=== PATIENT | female | born 1960 | race African-American/Black ===

== ENCOUNTER 2016-11-26 18:23 | Emergency (ER) | payer MEDICARE, OTHER | END 2016-11-26 19:47 | disposition left against medical advice (07) | LOC: ERS 18:23 | DX: Z53.21 Procedure and treatment not carried out due to patient leaving prior to being seen by health care provider (principal) ==

== ENCOUNTER 2017-11-15 12:56 | Outpatient (CLI) | payer MEDICARE, MEDICAID | END 2017-11-15 12:57 | disposition home or self-care (01) | LOC: MWLC DTY 12:56 | PROVIDERS: ATTEND Family Medicine | DX: I69.359 Hemiplegia and hemiparesis following cerebral infarction affecting unspecified side (principal); E11.40 Type 2 diabetes mellitus with diabetic neuropathy, unspecified; E11.69 Type 2 diabetes mellitus with other specified complication; E78.2 Mixed hyperlipidemia; I10 Essential (primary) hypertension; E66.01 Morbid (severe) obesity due to excess calories | CPT/HCPCS: 97802 ==

== ENCOUNTER 2018-11-27 14:05 | Outpatient (CLI) | payer MEDICARE, MEDICAID ==
--- NOTE | 2018-11-27 15:01 | MMO ---
Bilateral MAMMO Bilat Screen [facility]. CLINICAL HISTORY: Patient is 58 years old and is seen for screening. The patient has no family history of breast cancer. The patient has no personal history of cancer. VIEWS: The views performed were: bilateral craniocaudal with tomosynthesis and bilateral mediolateral oblique with tomosynthesis. FILMS COMPARED: The present examination has been compared to prior imaging studies performed at [facility] on 03/19/2008, 03/19/2015 and 12/27/2016. This study has been interpreted with the assistance of computer-aided detection. MAMMOGRAM FINDINGS: The breasts are almost entirely fat. There are stable benign appearing calcifications seen in both breasts. There are no suspicious masses, suspicious calcifications, or new areas of architectural distortion. IMPRESSION: THERE IS NO MAMMOGRAPHIC EVIDENCE OF MALIGNANCY. A ROUTINE FOLLOW-UP MAMMOGRAM IN 1 YEAR IS RECOMMENDED. THE RESULTS OF THIS EXAM WERE SENT TO THE PATIENT. ACR BI-RADS Category 2 - Benign finding MAMMOGRAPHY NOTE: 1. A negative mammogram report should not delay a biopsy if a dominant of clinically suspicious mass is present. 2. Approximately 10% to 15% of breast cancers are not detected by mammography. 3. Adenosis and dense breasts may obscure an underlying neoplasm. Reported by: MARK BO MD Electonically Signed: [id number]
== END 2018-11-27 14:06 | disposition home or self-care (01) ==
LOC: BICMAMMO 14:05
PROVIDERS: ATTEND Family Medicine
DX: Z12.31 Encounter for screening mammogram for malignant neoplasm of breast (principal)
CPT/HCPCS: 77063; 77067

== ENCOUNTER 2021-04-18 00:19 | Day surgery (SDC) | payer MEDICAID, MEDICARE ==
[2021-04-18 01:26] LABS: #Basophils 0.1 thou/uL (0.0-0.2); #Lymphocytes 2.1 thou/uL (1.20-3.40); #Monocytes 0.5 thou/uL (0.11-0.59); #Neutrophils 5.5 thou/uL (1.40-6.50); %Basophils 0.8 % (0.0-1.0); %Eosinophils 0.6 % (0.0-10.0); %Lymphocytes 25.4 % (21.0-51.0); %Monocytes 6.3 % (0.0-10.0); %Neutrophils 66.9 % (42.0-75.0); Hemoglobin 12.9 g/dL (12.0-16.0); Mean Corpuscular HGB CONC 34.3 g/dL (32.0-36.0); Mean Corpuscular Hemoglobin 32.4 pg (27.0-31.0); Mean Corpuscular Volume 94.5 fL (78.0-98.0); Mean Platelet Volume 8.4 fL (7.4-10.4); Platelet Count 185 thou/uL (130-400); RBC Distribution Width 13.2 % (11.5-14.5); Red Blood Cell (RBC) Count 3.99 mill/uL (4.20-5.40); White Blood Cell (WBC) Count 8.2 thou/uL (4.8-10.8)
[2021-04-18 02:48] LABS: ALT (SGPT) 29 U/L (8-55); AST (SGOT) 25 U/L (5-34); Albumin 3.9 g/dL (3.5-5.0); Alkaline Phosphatase 112 U/L (40-110); Anion Gap 13 mmol/L (10-20); BUN (Urea Nitrogen) 13 mg/dL (9.8-20.1); Bilirubin, Total 0.5 mg/dL (0.2-1.2); Calc. Creatinine Clearance 0 mL/min (70-130); Calcium 9.2 mg/dL (7.8-10.44); Carbon Dioxide 22 mmol/L (22-29); Chloride 105 mmol/L (98-107); Globulin 3.1 g/dL (2.4-3.5); Glucose 185 mg/dL (70-105); Potassium 3.8 mmol/L (3.5-5.1); Sodium 136 mmol/L (136-145)
[2021-04-18] MEDS ORDERED: Ondansetron PF 4 MG/2 ML Vial ONE ×3 (03:05→08:17)
[2021-04-18] MEDS ORDERED: Acetaminophen 500 MG TAB ONE (03:05)
[2021-04-18] MEDS ORDERED: Mag-Al 1200 mg/1200 mg/30 ML UDCUP ONE (03:06)
[2021-04-18 03:58] LABS: Bilirubin Negative (Negative); Blood, Urine Negative (Negative); Clarity Clear (Clear); Glucose, Urine (Dipstick) Normal (Negative); Ketone, Urine 10 mg/dL (Negative); Leukocyte Negative Leu/uL (Negative); Nitrite Negative (Negative); Protein, Urine (Dipstick) Negative (Neg-Trace); Specific Gravity, Urine 1.011 (1.002-1.036); Urobilinogen Normal mg/dL (Less than 2)
[2021-04-18] MEDS ORDERED: Lorazepam 1 MG TAB ONE (05:37)
[2021-04-18] MEDS ORDERED: Enoxaparin Sodium 100 MG/ML SYRINGE ONE (06:02)
[2021-04-18] MEDS ORDERED: Fentanyl 100 MCG/2 ML VIAL ONE ×3 (06:08→08:57)
[2021-04-18] MEDS ORDERED: Heparin 10,000 UNITS/ 10 ML VIAL ONE (07:43)
[2021-04-18] MEDS ORDERED: Midazolam HCl 2 mg/2 ml Vial ONE ×2 (08:17→08:57)
[2021-04-18] MEDS ORDERED: Lidocaine 1% (PF) 30 ML VIAL ONE (09:00)
[2021-04-18] MEDS ORDERED: Iopamidol 370 76% 100 ML VIAL ONE (10:42)
[2021-04-18] MEDS ORDERED: Fentanyl 250 MCG/5 ML VIAL ONE ×2 (11:09→12:03)
== END 2021-04-18 16:20 | disposition home or self-care (01) ==
LOC: ERS 00:19 → CCL 08:10
PROVIDERS: ATTEND Thoracic Surgery (Cardiothoracic Vascular Surgery)
PROC: 047C3DZ Dilation of Right Common Iliac Artery with Intraluminal Device, Percutaneous Approach (ICD-10-PCS; principal; 2021-04-18)
DX: E11.51 Type 2 diabetes mellitus with diabetic peripheral angiopathy without gangrene (principal); I70.203 Unspecified atherosclerosis of native arteries of extremities, bilateral legs; I69.151 Hemiplegia and hemiparesis following nontraumatic intracerebral hemorrhage affecting right dominant side; J44.9 Chronic obstructive pulmonary disease, unspecified; E78.5 Hyperlipidemia, unspecified; I10 Essential (primary) hypertension; I25.2 Old myocardial infarction; I25.10 Atherosclerotic heart disease of native coronary artery without angina pectoris; F17.210 Nicotine dependence, cigarettes, uncomplicated; E66.9 Obesity, unspecified; Z79.02 Long term (current) use of antithrombotics/antiplatelets; Z79.4 Long term (current) use of insulin; Z79.82 Long term (current) use of aspirin; Z79.899 Other long term (current) drug therapy; Z88.0 Allergy status to penicillin; Z88.5 Allergy status to narcotic agent; Z88.8 Allergy status to other drugs, medicaments and biological substances
CPT/HCPCS: 36415; 36416; 37221; 71045; 75710; 75736; 80053; 81003; 84484; 85025; 85347; 93005; 96372; 96374; 96375; 96376; 99152; 99153; C1876; J1644; J1650; J2001; J2250; J2405; J3010; Q9967

== ENCOUNTER 2022-01-14 15:18 | Outpatient (CLI) | payer MEDICARE, MEDICAID | END 2022-01-14 15:19 | disposition home or self-care (01) | LOC: BICRAD 15:18 | PROVIDERS: ATTEND Physician Assistant Medical | DX: R15.9 Full incontinence of feces (principal); R19.5 Other fecal abnormalities | CPT/HCPCS: 74019 ==

== ENCOUNTER 2022-10-13 14:21 | Outpatient (CLI) | payer MEDICARE, MEDICAID | END 2022-10-13 14:22 | disposition home or self-care (01) | LOC: RAD 14:21 | PROVIDERS: ATTEND Family Medicine | DX: S99.922A Unspecified injury of left foot, initial encounter (principal); S99.912A Unspecified injury of left ankle, initial encounter ==

== ENCOUNTER 2022-12-18 08:38 | Emergency (ER) | payer MEDICARE, MEDICAID ==
[2022-12-18] MEDS ORDERED: Acetaminophen 500 MG TAB ONE (09:00)
[2022-12-18 09:29] LABS: #Monocytes 0.4 thou/uL (0.11-0.59); #Neutrophils 2.6 thou/uL (1.40-6.50); %Basophils 0.3 % (0.0-1.0); %Eosinophils 0.7 % (0.0-10.0); %Lymphocytes 48.8 % (21.0-51.0); %Monocytes 6.8 % (0.0-10.0); %Neutrophils 43.2 % (42.0-75.0); Hematocrit 37.9 % (36.0-47.0); Hemoglobin 12.4 g/dL (12.0-16.0); Mean Corpuscular HGB CONC 32.7 g/dL (32.0-36.0); Mean Corpuscular Hemoglobin 29.3 pg (27.0-31.0); Mean Corpuscular Volume 89.6 fl (78.0-98.0); Mean Platelet Volume 11.2 fL (7.4-10.4); Platelet Count 182 10x3/uL (130-400); RBC Distribution Width 14.5 % (11.5-14.5); Red Blood Cell (RBC) Count 4.23 mill/uL (4.20-5.40); White Blood Cell (WBC) Count 5.9 10x3/uL (4.8-10.8)
[2022-12-18 09:55] LABS: ALT (SGPT) 16 U/L (8-55); AST (SGOT) 13 U/L (5-34); Albumin 4.3 g/dL (3.4-4.8); Alkaline Phosphatase 124 U/L (40-110); Anion Gap 10 mmol/L (10-20); BUN (Urea Nitrogen) 18 mg/dL (9.8-20.1); Bilirubin, Total 0.2 mg/dL (0.2-1.2); Calc. Creatinine Clearance 0 mL/min (70-130); Calcium 9.7 mg/dL (7.8-10.44); Carbon Dioxide 25 mmol/L (23-31); Chloride 109 mmol/L (98-107); Estimated GFR 47; Globulin 3.2 g/dL (2.4-3.5); Glucose 198 mg/dL (80-115); Potassium 3.3 mmol/L (3.5-5.1); Protein, Total 7.5 g/dL (5.8-8.1); Sodium 141 mmol/L (136-145)
[2022-12-18 09:59] LABS: Troponin I Less than 0.010 ng/mL (< 0.028)
== END 2022-12-18 10:52 | disposition home or self-care (01) ==
LOC: ERS 08:38
DX: R42 Dizziness and giddiness (principal); F17.210 Nicotine dependence, cigarettes, uncomplicated; E11.9 Type 2 diabetes mellitus without complications; I10 Essential (primary) hypertension; R51.9 Headache, unspecified; E78.5 Hyperlipidemia, unspecified; J44.9 Chronic obstructive pulmonary disease, unspecified; Z79.01 Long term (current) use of anticoagulants; Z79.899 Other long term (current) drug therapy; Z79.4 Long term (current) use of insulin
CPT/HCPCS: 70450; 80053; 84484; 85025; 93005

== ENCOUNTER 2024-11-24 07:19 | Inpatient (IN) | payer MEDICARE, MEDICAID ==
[2024-11-24 08:20] LABS: #Basophils Less than 0.03 10x3/uL (0.0-0.2); #Eosinophils Less than 0.03 10x3/uL (0.0-0.7); #Monocytes 0.26 10x3/uL (0.11-0.59); #Neutrophils 5.54 10x3/uL (1.40-6.50); %Basophils 0.1 % (0.0-1.0); %Eosinophils 0.1 % (0.0-10.0); %Lymphocytes 20.0 % (21.0-51.0); %Monocytes 3.6 % (0.0-10.0); %Neutrophils 75.9 % (42.0-75.0); Hematocrit 36.1 % (36.0-47.0); Hemoglobin 11.6 g/dL (12.0-16.0); Mean Corpuscular Hemoglobin 28.3 pg (27.0-31.0); Mean Corpuscular Volume 88.0 fL (78.0-98.0); Platelet Count 216 10x3/uL (130-400); Red Blood Cell (RBC) Count 4.10 mill/uL (4.20-5.40); White Blood Cell (WBC) Count 7.30 10x3/uL (4.8-10.8)
[2024-11-24 08:34] LABS: ALT (SGPT) 18 U/L (Less than 34); AST (SGOT) 24 U/L (11-34); Albumin 3.9 g/dL (3.1-4.5); Alkaline Phosphatase 163 U/L (40-110); Anion Gap 17 mmol/L (10-20); BUN (Urea Nitrogen) 15 mg/dL (9.8-20.1); Bilirubin, Total 0.4 mg/dL (0.3-1.2); Calc. Creatinine Clearance 0 mL/min (70-130); Calcium 9.6 mg/dL (7.8-10.44); Carbon Dioxide 20 mmol/L (23-31); Chloride 109 mmol/L (98-107); Globulin 3.8 g/dL (2.4-3.5); Glucose 263 mg/dL (80-115); Lipase 16 U/L (8-78); Potassium 3.6 mmol/L (3.5-5.1); Sodium 142 mmol/L (136-145)
[2024-11-24] MEDS ORDERED: diphenhydrAMINE 50 MG/ML VIAL ONE ×2 (08:56→09:55)
[2024-11-24] MEDS ORDERED: Iopamidol-370 76% 500 ML MDV (1 ML CHARGE) ONE (09:20)
[2024-11-24] MEDS ORDERED: hydrALAZINE 20 MG/ML VIAL ONE ×2 (10:55→13:52)
[2024-11-24] MEDS ORDERED: Lidocaine Viscous Sol 2% 15 ml UD Cup ONE (11:03)
[2024-11-24] MEDS ORDERED: Mag-Al 1200 mg/1200 mg/30 ML UDCUP ONE (11:03)
[2024-11-24 11:07] LABS: CAUTI Indications for Culture Dysuria,urgency,freq; Glucose, Urine (Dipstick) 200 mg/dL (Negative); Leukocyte Negative Leu/uL (Negative); Protein, Urine (Dipstick) 300 mg/dL (Neg-Trace); Specific Gravity, Urine 1.032 (1.002-1.036); Yeast-Budding Rare HPF (None Seen)
[2024-11-24 11:09] LABS: Bacteria/HPF 1+ HPF (None Seen); Urine Culture Reflex No No
[2024-11-24] MEDS ORDERED: Nitroglycerin 2% Ointment 1 INCH/1 GM Packet ONE (12:29)
[2024-11-24] MEDS ORDERED: Melatonin 3 MG TAB PO PRN (13:53)
[2024-11-24] MEDS ORDERED: Senokot S 8.6-50 MG TAB PO PRN (13:53)
[2024-11-24] MEDS ORDERED: Ondansetron PF 4 MG/2 ML Vial IVP PRN (13:53)
[2024-11-24] MEDS ORDERED: cloNIDine 0.1 MG TAB PO PRN (13:56)
[2024-11-24] MEDS ORDERED: Electrolyte Replacement Protocol 1 EACH FS SCH (14:00)
[2024-11-24] MEDS ORDERED: Dextrose 50% Abboject 50 ML SYRINGE SLOW IVP PRN (14:23)
[2024-11-24] MEDS ORDERED: Glucagon 1 MG/ML KIT IM PRN (14:23)
[2024-11-24] MEDS ORDERED: cloNIDine 0.1 MG TAB ONE (14:25)
[2024-11-24] MEDS ORDERED: Colchicine 0.6 MG TAB PO PRN (14:54)
[2024-11-24] MEDS: Acetaminophen 325 MG TAB PO SCH (15:58)
[2024-11-24] MEDS: Gabapentin 300 MG CAP PO SCH ×2 (16:00→21:53)
[2024-11-24] MEDS ORDERED: Mometasone 200 MCG/Formoterol 5 MCG 120 PUFF INHALER INH PRN (16:02)
[2024-11-24] MEDS: Furosemide 40 MG (4 mL) VIAL SLOW IVP SCH ×2 (16:02→21:21)
[2024-11-24] MEDS: QUEtiapine 100 MG TAB PO SCH (16:06)
[2024-11-24] MEDS: Cyclobenzaprine 10 MG TAB PO PRN (16:52)
[2024-11-24 17:39] VITALS: BMI 45.8
[2024-11-24 19:14] LABS: Anion Gap 17 mmol/L (10-20); Calcium 8.9 mg/dL (7.8-10.44); Carbon Dioxide 16 mmol/L (23-31); Chloride 113 mmol/L (98-107); Potassium 4.1 mmol/L (3.5-5.1); Sodium 142 mmol/L (136-145)
[2024-11-24 19:26] LABS: BUN (Urea Nitrogen) 17 mg/dL (9.8-20.1); Calc. Creatinine Clearance 75 mL/min (70-130); Glucose 214 mg/dL (80-115); Magnesium 2.4 mg/dL (1.6-2.6)
[2024-11-24] MEDS: Carvedilol 6.25 MG TAB PO SCH (21:53)
[2024-11-24] MEDS: Rosuvastatin 20 MG TAB PO SCH (21:53)
[2024-11-24] MEDS: Apixaban 5 MG TAB PO SCH (22:13)
[2024-11-25 05:20] LABS: #Basophils Less than 0.03 10x3/uL (0.0-0.2); #Eosinophils Less than 0.03 10x3/uL (0.0-0.7); #Monocytes 0.68 10x3/uL (0.11-0.59); #Neutrophils 4.75 10x3/uL (1.40-6.50); %Basophils 0.3 % (0.0-1.0); %Eosinophils 0.1 % (0.0-10.0); %Lymphocytes 25.3 % (21.0-51.0); %Monocytes 9.3 % (0.0-10.0); %Neutrophils 64.9 % (42.0-75.0); Hematocrit 35.5 % (36.0-47.0); Hemoglobin 11.2 g/dL (12.0-16.0); Mean Corpuscular Hemoglobin 28.6 pg (27.0-31.0); Mean Corpuscular Volume 90.8 fL (78.0-98.0); Platelet Count 216 10x3/uL (130-400); Red Blood Cell (RBC) Count 3.91 mill/uL (4.20-5.40); White Blood Cell (WBC) Count 7.32 10x3/uL (4.8-10.8)
[2024-11-25 05:52] LABS: ALT (SGPT) 16 U/L (Less than 34); AST (SGOT) 21 U/L (11-34); Albumin 3.7 g/dL (3.1-4.5); Alkaline Phosphatase 140 U/L (40-110); Anion Gap 15 mmol/L (10-20); BUN (Urea Nitrogen) 22 mg/dL (9.8-20.1); Bilirubin, Total 0.3 mg/dL (0.3-1.2); Calc. Creatinine Clearance 55 mL/min (70-130); Calcium 9.1 mg/dL (7.8-10.44); Carbon Dioxide 20 mmol/L (23-31); Chloride 111 mmol/L (98-107); Globulin 3.3 g/dL (2.4-3.5); Glucose 154 mg/dL (80-115); Magnesium 2.5 mg/dL (1.6-2.6); Potassium 3.6 mmol/L (3.5-5.1); Sodium 142 mmol/L (136-145)
[2024-11-25] MEDS ORDERED: HumaLOG 300 UNITS/3 ML VIAL SC PRN (08:32)
[2024-11-25] MEDS ORDERED: QUEtiapine 25 MG TAB PO SCH (09:00)
[2024-11-25] MEDS: Aspirin 81 mg Enteric Coated Tablet PO SCH (09:44)
[2024-11-25] MEDS: Pantoprazole 40 MG DR.TAB PO SCH (09:49)
[2024-11-25] MEDS: QUEtiapine 25 MG TAB PO SCH (09:51)
[2024-11-25] MEDS ORDERED: Prochlorperazine 10 MG/2 ML VIAL SLOW IVP PRN (10:47)
[2024-11-26 07:23] LABS: Hematocrit 34.6 % (36.0-47.0); Hemoglobin 10.7 g/dL (12.0-16.0); Mean Corpuscular Hemoglobin 28.7 pg (27.0-31.0); Mean Corpuscular Volume 92.8 fL (78.0-98.0); Platelet Count 190 10x3/uL (130-400); Red Blood Cell (RBC) Count 3.73 mill/uL (4.20-5.40); White Blood Cell (WBC) Count 6.68 10x3/uL (4.8-10.8)
[2024-11-26 07:44] LABS: Anion Gap 11 mmol/L (10-20); BUN (Urea Nitrogen) 32 mg/dL (9.8-20.1); Calc. Creatinine Clearance 46 mL/min (70-130); Calcium 8.7 mg/dL (7.8-10.44); Carbon Dioxide 25 mmol/L (23-31); Chloride 107 mmol/L (98-107); Glucose 119 mg/dL (80-115); Potassium 3.4 mmol/L (3.5-5.1); Sodium 140 mmol/L (136-145)
[2024-11-26 14:22] VITALS: BP 109/59; TEMP 98.1
== END 2024-11-26 17:07 | disposition home or self-care (01) | DRG 391 ==
LOC: ERS 07:19 → OBS 13:43 → OBSVTOIN 11-25 11:11
PROVIDERS: ADMIT Internal Medicine; ATTEND Internal Medicine
DX: R10.9 Unspecified abdominal pain (principal); I21.A1 Myocardial infarction type 2; J44.1 Chronic obstructive pulmonary disease with (acute) exacerbation; Z68.42 Body mass index [BMI] 45.0-49.9, adult; N17.9 Acute kidney failure, unspecified; I50.32 Chronic diastolic (congestive) heart failure; R11.2 Nausea with vomiting, unspecified; I48.91 Unspecified atrial fibrillation; E11.9 Type 2 diabetes mellitus without complications; F41.9 Anxiety disorder, unspecified; J44.9 Chronic obstructive pulmonary disease, unspecified; E78.5 Hyperlipidemia, unspecified; E66.9 Obesity, unspecified; N18.9 Chronic kidney disease, unspecified; I25.2 Old myocardial infarction; Z88.5 Allergy status to narcotic agent; Z88.0 Allergy status to penicillin; Z88.8 Allergy status to other drugs, medicaments and biological substances; Z79.899 Other long term (current) drug therapy; Z86.73 Personal history of transient ischemic attack (TIA), and cerebral infarction without residual deficits; G47.33 Obstructive sleep apnea (adult) (pediatric); Z98.890 Other specified postprocedural states; I16.0 Hypertensive urgency; N18.30 Chronic kidney disease, stage 3 unspecified; K59.00 Constipation, unspecified; F17.200 Nicotine dependence, unspecified, uncomplicated
CPT/HCPCS: 36415; 36416; 71045; 74177; 80048; 80053; 81001; 83036; 83605; 83690; 83735; 83880; 84443; 84484; 85025; 85027; 87040; 87086; 93005; 93306; 96361; 96374; 96375; 96376; G0378; J0360; J1200; J1815; J1940; J2060; J2550; Q0162; Q9967

== ENCOUNTER 2025-01-07 10:09 | Inpatient (IN) | payer MEDICARE, MEDICAID ==
[2025-01-07] MEDS ORDERED: Aspirin Chewable 81 MG TAB ONE (11:09)
[2025-01-07] MEDS ORDERED: Nitroglycerin 0.4 MG TAB 1 EACH ONE ×2 (11:11→12:57)
[2025-01-07 11:33] LABS: #Basophils Less than 0.03 10x3/uL (0.0-0.2); #Eosinophils 0.03 10x3/uL (0.0-0.7); #Monocytes 0.36 10x3/uL (0.11-0.59); #Neutrophils 4.53 10x3/uL (1.40-6.50); %Basophils 0.1 % (0.0-1.0); %Eosinophils 0.4 % (0.0-10.0); %Lymphocytes 27.3 % (21.0-51.0); %Monocytes 5.3 % (0.0-10.0); %Neutrophils 66.6 % (42.0-75.0); Hematocrit 36.5 % (36.0-47.0); Hemoglobin 12.1 g/dL (12.0-16.0); Mean Corpuscular Hemoglobin 28.9 pg (27.0-31.0); Mean Corpuscular Volume 87.1 fL (78.0-98.0); Platelet Count 170 10x3/uL (130-400); Red Blood Cell (RBC) Count 4.19 mill/uL (4.20-5.40); White Blood Cell (WBC) Count 6.81 10x3/uL (4.8-10.8)
[2025-01-07 11:56] LABS: ALT (SGPT) 14 U/L (Less than 34); AST (SGOT) 19 U/L (11-34); Albumin 3.6 g/dL (3.1-4.5); Alkaline Phosphatase 139 U/L (40-110); Anion Gap 13 mmol/L (10-20); BUN (Urea Nitrogen) 14 mg/dL (9.8-20.1); Bilirubin, Total 0.3 mg/dL (0.3-1.2); Calc. Creatinine Clearance 0 mL/min (70-130); Calcium 10.0 mg/dL (7.8-10.44); Carbon Dioxide 20 mmol/L (23-31); Chloride 113 mmol/L (98-107); Globulin 3.5 g/dL (2.4-3.5); Glucose 220 mg/dL (80-115); Potassium 3.6 mmol/L (3.5-5.1); Sodium 142 mmol/L (136-145)
[2025-01-07] MEDS ORDERED: Nitroglycerin 0.4 MG TAB (25 Tab Bottle) SL PRN (15:30)
[2025-01-07] MEDS ORDERED: Bisacodyl 10 MG SUPP PR PRN (15:31)
[2025-01-07] MEDS ORDERED: Acetaminophen 325 MG TAB PO PRN (15:31)
[2025-01-07] MEDS ORDERED: Calcium Carbonate 500 MG ChewTAB PO PRN (15:31)
[2025-01-07] MEDS ORDERED: Ondansetron PF 4 MG/2 ML Vial IVP PRN (15:31)
[2025-01-07] MEDS ORDERED: Senokot S 8.6-50 MG TAB PO PRN (15:31)
[2025-01-07] MEDS ORDERED: Dextrose 50% Abboject 50 ML SYRINGE SLOW IVP PRN (16:47)
[2025-01-07] MEDS ORDERED: Glucagon 1 MG/ML KIT IM PRN (16:47)
[2025-01-07 18:28] VITALS: BMI 45.8
[2025-01-07] MEDS: Lidocaine 2% Viscous Solution 10 ML, Aluminum & Magnesium Hydroxide 30 ML SSW SCH (19:18)
[2025-01-07] MEDS: Carvedilol 6.25 MG TAB PO SCH (19:18)
[2025-01-07] MEDS: Diclofenac 1% 50 GM TOPICAL GEL TP SCH (21:02)
[2025-01-07] MEDS: Apixaban 5 MG TAB PO SCH (21:04)
[2025-01-07] MEDS: Rosuvastatin 20 MG TAB PO SCH (21:04)
[2025-01-07] MEDS: Gabapentin 300 MG CAP PO SCH (21:04)
[2025-01-08] MEDS: Valsartan 80 MG TAB PO SCH ×2 (01:20→16:14)
[2025-01-08 04:22] LABS: #Basophils Less than 0.03 10x3/uL (0.0-0.2); #Eosinophils 0.03 10x3/uL (0.0-0.7); #Monocytes 0.37 10x3/uL (0.11-0.59); #Neutrophils 2.12 10x3/uL (1.40-6.50); %Basophils 0.2 % (0.0-1.0); %Eosinophils 0.6 % (0.0-10.0); %Lymphocytes 52.1 % (21.0-51.0); %Monocytes 7.0 % (0.0-10.0); %Neutrophils 40.1 % (42.0-75.0); Hematocrit 35.7 % (36.0-47.0); Hemoglobin 11.2 g/dL (12.0-16.0); Mean Corpuscular Hemoglobin 28.3 pg (27.0-31.0); Mean Corpuscular Volume 90.2 fL (78.0-98.0); Platelet Count 155 10x3/uL (130-400); Red Blood Cell (RBC) Count 3.96 mill/uL (4.20-5.40); White Blood Cell (WBC) Count 5.28 10x3/uL (4.8-10.8)
[2025-01-08 04:31] LABS: Anion Gap 13 mmol/L (10-20); BUN (Urea Nitrogen) 16 mg/dL (9.8-20.1); Calc. Creatinine Clearance 92 mL/min (70-130); Calcium 8.9 mg/dL (7.8-10.44); Carbon Dioxide 22 mmol/L (23-31); Cardiac Risk 4.3 (Less than 4.5); Chloride 112 mmol/L (98-107); Cholesterol 112 mg/dl (< 200 Desired); Glucose 142 mg/dL (80-115); HDL Cholesterol 26 mg/dL (>60 Neg Risk); LDL Cholesterol, Calculated 57 mg/dL; Potassium 3.0 mmol/L (3.5-5.1); Sodium 144 mmol/L (136-145); Triglycerides 146 mg/dL (Less than 150)
[2025-01-08] MEDS: hydrALAZINE 20 MG/ML VIAL SLOW IVP SCH (05:14)
[2025-01-08] MEDS ORDERED: Gabapentin 300 MG CAP PO PRN (08:07)
[2025-01-08] MEDS: QUEtiapine 100 MG TAB PO SCH (08:42)
[2025-01-08] MEDS: Furosemide 40 MG TAB PO SCH (08:42)
[2025-01-08] MEDS: Pantoprazole 40 MG DR.TAB PO SCH (08:43)
[2025-01-08] MEDS ORDERED: Aspirin Chewable 81 MG TAB PO SCH (09:00)
[2025-01-08] MEDS ORDERED: Valsartan 80 MG TAB PO SCH (09:00)
[2025-01-08] MEDS: Carvedilol 6.25 MG TAB PO SCH (16:16)
[2025-01-08] MEDS: Rosuvastatin 20 MG TAB PO SCH (20:21)
[2025-01-08] MEDS: Melatonin 3 MG TAB PO PRN (22:48)
[2025-01-09 04:20] LABS: Anion Gap 14 mmol/L (10-20); BUN (Urea Nitrogen) 18 mg/dL (9.8-20.1); Calc. Creatinine Clearance 97 mL/min (70-130); Calcium 9.4 mg/dL (7.8-10.44); Carbon Dioxide 20 mmol/L (23-31); Chloride 114 mmol/L (98-107); Glucose 152 mg/dL (80-115); Potassium 3.5 mmol/L (3.5-5.1); Sodium 144 mmol/L (136-145)
[2025-01-09 11:31] VITALS: BP 167/77; TEMP 98.2
== END 2025-01-09 16:30 | disposition home or self-care (01) | DRG 313 ==
LOC: ERS 10:09 → 2NO 15:20 → OBSVTOIN 01-08 14:11
PROVIDERS: ADMIT Family Medicine; ATTEND Family Medicine
DX: R07.9 Chest pain, unspecified (principal); I69.951 Hemiplegia and hemiparesis following unspecified cerebrovascular disease affecting right dominant side; Z68.42 Body mass index [BMI] 45.0-49.9, adult; G43.909 Migraine, unspecified, not intractable, without status migrainosus; J44.9 Chronic obstructive pulmonary disease, unspecified; E78.5 Hyperlipidemia, unspecified; I25.10 Atherosclerotic heart disease of native coronary artery without angina pectoris; F41.9 Anxiety disorder, unspecified; F31.9 Bipolar disorder, unspecified; I48.91 Unspecified atrial fibrillation; N18.31 Chronic kidney disease, stage 3a; G47.33 Obstructive sleep apnea (adult) (pediatric); E11.22 Type 2 diabetes mellitus with diabetic chronic kidney disease; I12.9 Hypertensive chronic kidney disease with stage 1 through stage 4 chronic kidney disease, or unspecified chronic kidney disease; K21.9 Gastro-esophageal reflux disease without esophagitis; I48.0 Paroxysmal atrial fibrillation; F41.0 Panic disorder [episodic paroxysmal anxiety]; E66.01 Morbid (severe) obesity due to excess calories; I25.2 Old myocardial infarction; Z88.8 Allergy status to other drugs, medicaments and biological substances; Z88.5 Allergy status to narcotic agent; Z88.0 Allergy status to penicillin; Z88.6 Allergy status to analgesic agent; Z79.01 Long term (current) use of anticoagulants; Z79.899 Other long term (current) drug therapy; Z95.818 Presence of other cardiac implants and grafts; Z90.710 Acquired absence of both cervix and uterus; Z90.89 Acquired absence of other organs
CPT/HCPCS: 36415; 36416; 71045; 78452; 80048; 80053; 80061; 84484; 85025; 93005; 93010; 93017; 94760; 96374; 96375; A9502; G0378; J0360; J2060; J2785

== ENCOUNTER 2025-02-07 15:32 | Emergency (ER) | payer MEDICARE, MEDICAID ==
[2025-02-07 18:25] LABS: Bacteria/HPF 4+ HPF (None Seen); CAUTI Indications for Culture Dysuria,urgency,freq; Glucose, Urine (Dipstick) Normal (Negative); Leukocyte Negative Leu/uL (Negative); Protein, Urine (Dipstick) 100 mg/dL (Neg-Trace); RBC/HPF 0-3 HPF (0-3); Specific Gravity, Urine 1.013 (1.002-1.036); WBC/HPF 0-3 HPF (0-3)
[2025-02-07 18:42] LABS: Urine Culture Reflex No No
[2025-02-07 20:07] LABS: ALT (SGPT) 10 U/L (Less than 34); AST (SGOT) 11 U/L (11-34); Albumin 3.8 g/dL (3.1-4.5); Alkaline Phosphatase 138 U/L (40-110); Anion Gap 12 mmol/L (10-20); BUN (Urea Nitrogen) 21 mg/dL (9.8-20.1); Bilirubin, Total 0.2 mg/dL (0.3-1.2); Calc. Creatinine Clearance 0 mL/min (70-130); Calcium 9.5 mg/dL (7.8-10.44); Carbon Dioxide 22 mmol/L (23-31); Chloride 114 mmol/L (98-107); Globulin 3.5 g/dL (2.4-3.5); Glucose 134 mg/dL (80-115); Lipase 27 U/L (8-78); Potassium 3.8 mmol/L (3.5-5.1); Sodium 144 mmol/L (136-145)
== END 2025-02-07 20:30 | disposition home or self-care (01) ==
LOC: ERS 15:32
DX: K80.20 Calculus of gallbladder without cholecystitis without obstruction (principal); R82.71 Bacteriuria; R31.9 Hematuria, unspecified; J44.9 Chronic obstructive pulmonary disease, unspecified; E11.9 Type 2 diabetes mellitus without complications; I10 Essential (primary) hypertension; I25.2 Old myocardial infarction; I25.10 Atherosclerotic heart disease of native coronary artery without angina pectoris; F17.210 Nicotine dependence, cigarettes, uncomplicated; Z86.73 Personal history of transient ischemic attack (TIA), and cerebral infarction without residual deficits
CPT/HCPCS: 74176; 76705; 80053; 81001 ×2; 82043; 82306; 82962; 83690; 83735; 83970; 84156; 85025; 96372; 96374; 99284; J3010; 36415; 36416; 80048; 82040; 84100